=== PATIENT | female | born 1980 | race Caucasian/White ===

== ENCOUNTER 2020-03-31 11:11 | Day surgery (SDC) | payer BC ==
[~2020-03-31] VITALS: Ht 172.7 cm; Wt 70.3 kg
[~2020-03-31 11:11] MED LIST: CALCIUM 600 +1 EAC8 PO; MULTI VITAMIN1 EACH PO; OMEGA-3 FISH1200 MG PO; TURMERIC PO; VITAMIN B12 PO
[2020-03-31 12:40] VITALS: BP 123/86
[2020-03-31 15:41] VITALS: BP 123/86
--- NOTE | 2020-04-01 16:14 | O ---
[address] [address] OPERATIVE REPORT Name: LAMBERT TALAVERA Room #: DEP [facility]..#: [id number] Admission: 03/31/20 Attend Phys: Michael Gauthier MD Discharge: 03/31/20 Date of : 82 Report #: [id number] THIS REPORT FOR: cc: Kristina Lira,Kristina Tapia,Michael Rincon MD ~ CC: Kristina Gauthier DATE OF SERVICE: 03/31/2020 SERVICE: Orthopedics. FACILITY: [facility]. SURGEON: Michael Gauthier MD DIRECTOR CARDIAC: Tenisha Bourgeois NP INDICATION FOR DIRECTOR CARDIAC: Extremity positioning, suture management, arthroscope management, assistance with the repair. PREOPERATIVE DIAGNOSES: 1. Right hip pain. 2. Right hip femoroacetabular impingement. 3. Right hip labral tear. 4. Right hip chondromalacia. POSTOPERATIVE DIAGNOSES: 1. Right hip pain. 2. Right hip femoroacetabular impingement. 3. Right hip labral tear. 4. Right hip chondromalacia. PROCEDURES: 1. Right hip arthroscopic labral repair. 2. Right hip arthroscopic Cam osteochondroplasty. 3. Right hip arthroscopic acetabuloplasty. 4. Right hip arthroscopic subspine decompression. 5. Right hip arthroscopic chondroplasty. COMPLICATIONS: None. DRAINS: None. SPECIMENS: None. [address] [address] OPERATIVE REPORT Name: LAMBERT TALAVERA Room #: [facility]#: [id number] Admission: 03/31/20 Attend Phys: Michael Gauthier MD Discharge: 03/31/20 Date of : 82 Report #: [id number] ANESTHESIA: General with regional. COMPLICATIONS: None. DRAINS: None. SPECIMENS: None. FINDINGS: 1. [place] CinchLock suture anchor x 3 for labral repair. 2. Anterior area of near full-thickness articular cartilage damage, treated with chondroplasty on the acetabular rim at the chondral labral junction. No grade 4 or full-thickness articular cartilage lesions noted. 3. Capsular repair with #2 Vicryl suture x 5. 4. Focal anterior rim over coverage, but no lateral over coverage. Small subspine impingement lesion, treated with subspine decompression. HISTORY: The patient is a 39-year-old female who is an active individual with a long history of athletic activities and a multiyear history of progressive persistent right hip pain that had failed conservative treatment including rest, activity modifications, physical therapy, home treatment modalities, and intra-articular treatment. She had a positive pain response with intra-articular injection and had insufficient relief with the all of her conservative measures. She had imaging consistent with femoroacetabular impingement with an alpha angle of approximately 65-70 degrees at the maximum and obvious Cam deformity with a focal area of anterior over coverage and subspine impingement. The MRI showed a moderate labral tear as well as some rim chondromalacia. We had discussion about treatment options including surgical and she wished to move forward in that direction after failing conservative measures including greater than 6 months of active conservative care. Despite risks, she wished to move forward. The risks include but not limited to pain, bleeding, infection, injury to nerves or blood vessels, persistent pain despite surgical intervention, failure of any repairs, progression of any preexisting chondral injury, stiffness, need for further surgery, as well as complications related to anesthesia such as stroke, heart attack, thromboembolic disease, and . PROCEDURE IN DETAIL: After the right lower extremity was correctly identified in the preoperative holding area as the operative extremity, the patient underwent regional nerve block and she was then taken to the operating room where general anesthesia was induced without complication. She was padded appropriately. Prophylactic antibiotics were administered at appropriate time. Right hip was evaluated under C-arm to identify the standard Cam deformity. Her Cam extended from the 5-degree position all the way to the 90-degree position [address] [address] OPERATIVE REPORT Name: SADAFLABMERT Ly [id number] Admission: 03/31/20 Attend Phys: Michael Gauthier MD Discharge: 03/31/20 Date of : 82 Report #: [id number] and with moderate to large in size. Stage x-rays were then used to compare to at the end of the case. Right hip was then prepped and draped in standard sterile fashion. Time-out procedure was performed. Traction was applied to right lower extremity after the time-out and antibiotics had been appropriately administered. Under C-arm fluoroscopy, standard anterior lateral viewing portals established. Then, a mid-anterior working portal was established in typical fashion under arthroscopic and fluoroscopic visualization. There was noted to be synovitis in the anterior hip and a transverse capsulotomy was performed in a typical fashion. Diagnostic arthroscopy revealed intact articular cartilage on the femoral head without any abnormalities and then the anterior chondral labral junctional disruption, which was quite apparent as soon as the scope was placed into the hip. The labrum was unstable to probing over a relatively large anterior segment of the acetabulum. Capsule was reflected off the dorsal side of the labrum exposing a small anterior over coverage lesion as well as prominent subspine region and so a bur was used to perform very limited anterior rim acetabuloplasty as well as the subspine decompression. She did not have lateral over coverage and in fact was slightly under coverage on the lateral side, so no rim resection performed laterally. After the acetabular side of the hip was then adequately prepared, first of 3 [place] CinchLock suture anchors were deployed and cerclage sutures were applied providing good re-fixation of the acetabular labrum. The labrum was then probed after the third anchor was deployed and this was found to be quite stable. The arthroscopic biter was used to debride the unstable portion of the anterior chondral instability and then a shaver was used to complete the chondroplasty to a stable perimeter. After this was completed, traction was let down. Hip was flexed up. Attention was turned towards the peripheral compartment. The transverse capsulotomy was then extended down the neck in a T fashion to allow visualization of the entire Cam deformity and then the bur was used to perform a thorough Cam osteoplasty in a typical fashion after the proximal and distal extents have been appropriately established as well as the medial and lateral extent. After the Cam osteoplasty was completed, I removed the instruments, brought C-arm in, and assessed the resection. At this point, I was happy with the appearance in all planes and I then placed the instruments back in the hip, lavaged the bony debris out of the hip and then closed the T-shaped capsulotomy with a total of five #2 Vicryl sutures. The instruments were then removed. Portal sites were closed. Sterile dressing was applied. The patient was awakened from anesthesia and taken to recovery room in stable condition. No complications. All counts were reported to be correct. <ELECTRONICALLY SIGNED> By: Michael Gauthier MD 04/01/20 1614 [id number] Michael Gauthier MD /nt
== END 2020-03-31 16:25 | disposition home or self-care (01) ==
LOC: OR 11:11 → TBA 11:16 → OR 11:23
PROVIDERS: ATTEND Orthopaedic Surgery Sports Medicine
DX: M25.551 Pain in right hip (principal); M25.851 Other specified joint disorders, right hip; S73.101A Unspecified sprain of right hip, initial encounter; M94.251 Chondromalacia, right hip; K21.9 Gastro-esophageal reflux disease without esophagitis; Z98.890 Other specified postprocedural states; Z79.899 Other long term (current) drug therapy; X58.XXXA Exposure to other specified factors, initial encounter; Y93.89 Activity, other specified; Y92.89 Other specified places as the place of occurrence of the external cause; Y99.8 Other external cause status
CPT/HCPCS: 50010; 50101; 50386; 51320; 51538; 52001; 52282; 52304; 56524; 56527; 57092; 57103; 58273; 62110; 62900; 70005